=== PATIENT | male | born 1960 | race Caucasian/White ===

== ENCOUNTER 2024-01-18 07:07 | Day surgery (SDC) | payer BC ==
[~2024-01-18 07:07] MED LIST: Lactated Ringers 1,000 ML IV SCH; Sodium Chloride 0.9% 10 ML Syringe FLUSH PRN
[2024-01-18] MEDS ORDERED: Midazolam 1 MG/ML 2 ML SDV IV ONE (07:08)
[2024-01-18] MEDS ORDERED: Propofol 200 MG/20 ML SDV IV ONE (07:08)
[2024-01-18] MEDS ORDERED: fentaNYL 100 MCG/2 ML SDV IV ONE (07:08)
[2024-01-18] MEDS: Lactated Ringers 1,000 ML IV SCH (08:06)
[2024-01-18] MEDS: Simethicone Drops 40 MG/0.6 ML 30 ML Bottle ONE (08:40)
== END 2024-01-18 09:55 | disposition home or self-care (01) ==
LOC: FB.SDS 07:07
PROVIDERS: ATTEND Surgery
DX: Z12.11 Encounter for screening for malignant neoplasm of colon (principal)
CPT/HCPCS: 00812; A9270-GY; J2250; J2704; J3010; J7120